=== PATIENT | female | born 1985 | race Two or more races ===

== ENCOUNTER 2018-08-21 00:11 | Emergency (ER) | payer SELFPAY ==
[~2018-08-21] VITALS: Ht 162.6 cm; Wt 122.9 kg
[2018-08-21 00:19] VITALS: BP 125/83
== END 2018-08-21 06:46 | disposition left against medical advice (07) ==
LOC: EDBD 00:11 → ER 00:17
DX: N93.9 Abnormal uterine and vaginal bleeding, unspecified (principal); Z53.21 Procedure and treatment not carried out due to patient leaving prior to being seen by health care provider

== ENCOUNTER 2020-08-08 14:57 | Emergency (ER) | payer MEDICAID, OTHER ==
[~2020-08-08] VITALS: Ht 162.6 cm; Wt 126.1 kg
[2020-08-08 16:48] LABS: Urine Bacteria NONE SEEN /hpf (None Seen); Urine Blood 3+ /uL (Negative); Urine Mucus MODERATE (None Seen); Urine Specific Gravity 1.026 (1.001-1.035); Urine WBC 92 /hpf (0 - 5)
[2020-08-08] MEDS ORDERED: cefTRIAXone 1GM/50ML D5W 50 ML IV ONE (18:30)
[2020-08-08 19:27] LABS: Basophils # (auto) 0.1 10 ^3/uL (0-0.2); Basophils % (auto) 0.6 % (0.0-2.0); Hemoglobin 8.5 g/dL (12.2-16.2); Neutrophils # (auto) 8.8 10 ^3/uL (1.6-8.6); Nucleated Red Blood Cells % 0.1 %
[2020-08-08 19:28] LABS: INR 0.99 (0.9-1.15); Partial Thromboplastin Time 28.1 sec (23.0-31.2)
[2020-08-08 19:29] LABS: Eosinophils # (auto) 0.1 10 ^3/uL (0-0.8); Hematocrit 28.4 % (36.0-46.0); Lymphocytes # (auto) 3.4 10 ^3/uL (0.4-5.4); Lymphocytes % (auto) 25.9 % (10.0-50.0); Mean Corpuscular Hgb Conc. 29.9 g/dL (32.0-36.0); Mean Corpuscular Volume 63.6 fL (80.0-100.0); Monocytes # (auto) 0.6 10 ^3/uL (0-1.3); Monocytes % (auto) 4.9 % (0.0-12.0); Neutrophils % (auto) 67.6 % (37.0-80.0); Platelet Count (auto) 561 10^3/uL (140-450); Red Blood Cells 4.47 10^6/uL (4.0-5.20); Red Cell Distribution Width 19.7 % (11.8-14.3); White Blood Cell 13.1 10^3/uL (4.4-10.8)
[2020-08-08 19:30] LABS: Albumin 3.6 g/dL (3.4-5.0)
[2020-08-08 19:34] LABS: BUN/Creatinine Ratio 16.4; Bilirubin, Total 0.5 mg/dL (0.2-1.0); Total Protein 7.9 g/dL (6.4-8.2)
[2020-08-09 00:44] VITALS: BP 108/47
[2020-08-09 00:59] VITALS: BP 125/69
[2020-08-09 03:00] VITALS: BP 105/56
[2020-08-09 03:01] VITALS: BP 104/48
== END 2020-08-09 03:53 | disposition home or self-care (01) ==
LOC: ER 14:57
DX: D64.9 Anemia, unspecified (principal); N39.0 Urinary tract infection, site not specified
CPT/HCPCS: 36415; 36430; 80053; 81001; 85025; 85610; 85730; 86850; 86870; 86900; 86901; 86902; 86905; 96365; 99285; J0696; J7030; P9016; 86920; 86922

== ENCOUNTER 2021-04-06 02:53 | Inpatient (IN) | payer MEDICAID ==
[~2021-04-06] VITALS: Ht 160 cm; Wt 120.5 kg
[2021-04-06] MEDS ORDERED: MORPHINE SULFATE INJECTION 2 MG/ML SYRG IV PRN (06:30)
[2021-04-06] MEDS ORDERED: NITROGLYCERIN 0.4 MG SL TAB SL PRN (06:30)
[2021-04-06] MEDS ORDERED: TEMAZEPAM 15 MG CAP PO PRN (06:30)
[2021-04-06] MEDS ORDERED: ONDANSETRON HCL 4 MG/2 ML VIAL IV PRN (06:30)
[2021-04-06] MEDS ORDERED: ACETAMINOPHEN 500 MG TAB PO PRN (06:30)
[2021-04-06 07:02] VITALS: BP 101/50
[2021-04-06 07:23] LABS: Basophils # (auto) 0 10 ^3/uL (0-0.2); Eosinophils # (auto) 0 10 ^3/uL (0-0.8); Lymphocytes # (auto) 0.9 10 ^3/uL (0.4-5.4); Mean Corpuscular Hemoglobin 25.4 pg (28.0-32.0); White Blood Cell 4.1 10^3/uL (4.4-10.8)
[2021-04-06 07:24] LABS: Basophils % (auto) 0.6 % (0.0-2.0); Eosinophils % (auto) 0.6 % (0.0-7.0); Hematocrit 36.5 % (36.0-46.0); Hemoglobin 12.3 g/dL (12.2-16.2); Lymphocytes % (auto) 22.8 % (10.0-50.0); Mean Corpuscular Hgb Conc. 33.7 g/dL (32.0-36.0); Mean Corpuscular Volume 75.3 fL (80.0-100.0); Monocytes # (auto) 0.6 10 ^3/uL (0-1.3); Monocytes % (auto) 14.7 % (0.0-12.0); Neutrophils # (auto) 2.5 10 ^3/uL (1.6-8.6); Neutrophils % (auto) 61.3 % (37.0-80.0); Nucleated Red Blood Cells % 0.1 %; Red Blood Cells 4.84 10^6/uL (4.0-5.20); Red Cell Distribution Width 17.7 % (11.8-14.3)
[2021-04-06 07:38] LABS: INR 1.06 (0.9-1.15); Partial Thromboplastin Time 25.6 sec (23.0-31.2)
[2021-04-06 07:45] LABS: Magnesium 2.3 mg/dL (1.6-2.6)
[2021-04-06 07:54] LABS: CRP High Sensitivity 4.43 mg/dL (< 0.3)
[2021-04-06 08:06] LABS: Anion Gap 9 (5-15); Blood Urea Nitrogen 12 mg/dL (7-18); Calcium 8.5 mg/dL (8.5-10.1); Carbon Dioxide 25 mmol/L (21-32); Chloride 108 mmol/L (98-107); Glucose 87 mg/dL (74-106); Magnesium 2.4 mg/dL (1.6-2.6); Potassium 3.2 mmol/L (3.5-5.1); Sodium 142 mmol/L (136-145)
[2021-04-06 08:12] LABS: Alanine Aminotransferase 39 U/L (13-56); Alkaline Phosphatase 53 U/L (45-117); Aspartate Aminotransferase 26 U/L (15-37); BUN/Creatinine Ratio 20.3; Bilirubin, Total 0.6 mg/dL (0.2-1.0); GFR African American 149 mL/min; GFR Non-African American 123 mL/min; Total Protein 7.8 g/dL (6.4-8.2)
[2021-04-06] MEDS: AZITHROMYCIN 500MG/ 250ML 250 ML IV SCH (10:40)
[2021-04-06] MEDS: DexAMETHasone SOD PHOS 10MG/1ML VIAL INJ IV SCH (10:40)
[2021-04-06] MEDS: ZINC SULFATE 220mg CAP or TAB PO SCH (10:41)
[2021-04-06] MEDS: ASCORBIC ACID 1,000 MG TAB PO SCH (10:41)
[2021-04-06] MEDS: CHOLECALCIFEROL (VITD3) 2,000 UNIT CAP/TAB PO SCH (10:41)
[2021-04-06] MEDS: FAMOTIDINE 20 MG TAB PO SCH ×2 (10:41→22:00)
[2021-04-06] MEDS: ENOXAPARIN SOD 40 MG/0.4 ML SYRINGE SC SCH ×2 (10:41→22:00)
[2021-04-06] MEDS ORDERED: REMDESIVIR PER PHARMACY 0 ML IV SCH (11:30)
[2021-04-06] MEDS: IPRATROPIUM BROMIDE HFA AER IN SCH ×3 (11:45→22:11)
[2021-04-06 12:30] VITALS: BP 123/68
[2021-04-06] MEDS: ALBUTEROL SULF HFA 90MCG INH 200DOSE IN PRN ×2 (13:41→18:50)
[2021-04-06] MEDS ORDERED: FUROSEMIDE 40 MG/4 ML VIAL IV ONE (14:00)
[2021-04-06 14:01] LABS: Urine Bacteria NONE SEEN /hpf (None Seen); Urine Blood TRACE /uL (Negative); Urine Hyaline Cast MOD /lpf (0 - 2); Urine Mucus FEW (None Seen); Urine Specific Gravity 1.027 (1.001-1.035); Urine WBC 532 /hpf (0 - 5)
[2021-04-06] MEDS ORDERED: REMDESIVIR 200 MG in NS 210ml LOADING DOSE ADULT IV ONE (15:00)
[2021-04-06] MEDS ORDERED: guaiFENesin-DM 100/10mg/5ml SYR PO PRN (15:45)
[2021-04-06] MEDS ORDERED: diphenhdrAMINE HCL 50 MG/1 ML VL IV PRN (16:00)
[2021-04-06 17:00] VITALS: BP 114/70
[2021-04-06 20:00] VITALS: BP 115/67
[2021-04-06 22:00] VITALS: BP 115/67
[2021-04-07] VITALS (8 sets, daily range): BP systolic 104–119; BP diastolic 59–71
[2021-04-07 07:18] LABS: Basophils # (auto) 0 10 ^3/uL (0-0.2); Basophils % (auto) 0.2 % (0.0-2.0); Eosinophils # (auto) 0 10 ^3/uL (0-0.8); Hematocrit 34.7 % (36.0-46.0); Hemoglobin 11.4 g/dL (12.2-16.2); Lymphocytes # (auto) 0.9 10 ^3/uL (0.4-5.4); Lymphocytes % (auto) 19.7 % (10.0-50.0); Mean Corpuscular Hemoglobin 24.9 pg (28.0-32.0); Mean Corpuscular Hgb Conc. 32.8 g/dL (32.0-36.0); Mean Corpuscular Volume 75.9 fL (80.0-100.0); Monocytes # (auto) 0.5 10 ^3/uL (0-1.3); Monocytes % (auto) 10.8 % (0.0-12.0); Neutrophils # (auto) 3.3 10 ^3/uL (1.6-8.6); Neutrophils % (auto) 69.3 % (37.0-80.0); Nucleated Red Blood Cells % 0.2 %; Red Blood Cells 4.57 10^6/uL (4.0-5.20); Red Cell Distribution Width 17.7 % (11.8-14.3); White Blood Cell 4.8 10^3/uL (4.4-10.8)
[2021-04-07 07:34] LABS: Potassium 3.3 mmol/L (3.5-5.1)
[2021-04-07 07:40] LABS: Bilirubin, Total 0.5 mg/dL (0.2-1.0); Total Protein 7.6 g/dL (6.4-8.2)
[2021-04-07] MEDS: ALBUTEROL SULF HFA 90MCG INH 200DOSE IN PRN ×2 (07:50→22:59)
[2021-04-07] MEDS: IPRATROPIUM BROMIDE HFA AER IN SCH ×4 (07:51→22:59)
[2021-04-07] MEDS: ENOXAPARIN SOD 40 MG/0.4 ML SYRINGE SC SCH ×2 (09:37→21:13)
[2021-04-07] MEDS: AZITHROMYCIN 500MG/ 250ML 250 ML IV SCH (09:37)
[2021-04-07] MEDS: DexAMETHasone SOD PHOS 10MG/1ML VIAL INJ IV SCH (09:37)
[2021-04-07] MEDS: CHOLECALCIFEROL (VITD3) 2,000 UNIT CAP/TAB PO SCH (09:38)
[2021-04-07] MEDS: FAMOTIDINE 20 MG TAB PO SCH ×2 (09:38→21:14)
[2021-04-07] MEDS: ASCORBIC ACID 1,000 MG TAB PO SCH (09:38)
[2021-04-07] MEDS: ZINC SULFATE 220mg CAP or TAB PO SCH (09:38)
[2021-04-07] MEDS: FUROSEMIDE 40 MG/4 ML VIAL IV SCH (09:39)
[2021-04-07] MEDS: REMDESIVIR 100mg 100 MG in SODIUM CHL 0.9% 230 ML IV SCH (15:01)
[2021-04-08 05:28] VITALS: BP 111/60
[2021-04-08] MEDS: ALBUTEROL SULF HFA 90MCG INH 200DOSE IN PRN ×2 (07:19→22:33)
[2021-04-08] MEDS: IPRATROPIUM BROMIDE HFA AER IN SCH ×4 (07:19→22:00)
[2021-04-08 07:43] LABS: Calcium 8.6 mg/dL (8.5-10.1); Potassium 3.2 mmol/L (3.5-5.1)
[2021-04-08 07:46] LABS: BUN/Creatinine Ratio 23.1; Bilirubin, Total 0.5 mg/dL (0.2-1.0); Total Protein 7.5 g/dL (6.4-8.2)
[2021-04-08 08:50] VITALS: BP 108/61
[2021-04-08] MEDS: ASCORBIC ACID 1,000 MG TAB PO SCH (09:48)
[2021-04-08] MEDS: AZITHROMYCIN 500MG/ 250ML 250 ML IV SCH (09:48)
[2021-04-08] MEDS: FUROSEMIDE 40 MG/4 ML VIAL IV SCH (09:48)
[2021-04-08] MEDS: ZINC SULFATE 220mg CAP or TAB PO SCH (09:48)
[2021-04-08] MEDS: FAMOTIDINE 20 MG TAB PO SCH ×2 (09:48→21:30)
[2021-04-08] MEDS: DexAMETHasone SOD PHOS 10MG/1ML VIAL INJ IV SCH (09:48)
[2021-04-08] MEDS: CHOLECALCIFEROL (VITD3) 2,000 UNIT CAP/TAB PO SCH (09:48)
[2021-04-08] MEDS: ENOXAPARIN SOD 40 MG/0.4 ML SYRINGE SC SCH ×2 (09:49→21:30)
[2021-04-08 12:53] VITALS: BP 109/66
[2021-04-08] MEDS ORDERED: POTASSIUM CHL 20 Meq TABLET PO ONE (13:00)
[2021-04-08] MEDS ORDERED: BUDESONIDE (INHALATION) 0.5 MG/2 ML NEB NEB ONE (13:00)
[2021-04-08] MEDS: REMDESIVIR 100mg 100 MG in SODIUM CHL 0.9% 230 ML IV SCH (15:31)
[2021-04-08 17:00] VITALS: BP 110/67
[2021-04-08 20:00] VITALS: BP 114/68
[2021-04-08 22:00] VITALS: BP 114/77
[2021-04-08] MEDS: BUDESONIDE (INHALATION) 0.5 MG/2 ML NEB NEB SCH (22:32)
[2021-04-09 05:00] VITALS: BP 106/59
[2021-04-09 07:08] LABS: BUN/Creatinine Ratio 24.1; Calcium 8.2 mg/dL (8.5-10.1); Potassium 3.2 mmol/L (3.5-5.1)
[2021-04-09 07:10] LABS: Bilirubin, Total 0.6 mg/dL (0.2-1.0); Total Protein 7.4 g/dL (6.4-8.2)
[2021-04-09] MEDS: IPRATROPIUM BROMIDE HFA AER IN SCH ×4 (07:15→22:41)
[2021-04-09] MEDS: ALBUTEROL SULF HFA 90MCG INH 200DOSE IN PRN ×3 (07:15→18:11)
[2021-04-09] MEDS: BUDESONIDE (INHALATION) 0.5 MG/2 ML NEB NEB SCH ×2 (07:15→18:11)
[2021-04-09 08:55] VITALS: BP 108/54
[2021-04-09] MEDS: FUROSEMIDE 40 MG/4 ML VIAL IV SCH (10:03)
[2021-04-09] MEDS: DexAMETHasone SOD PHOS 10MG/1ML VIAL INJ IV SCH (10:03)
[2021-04-09] MEDS: ZINC SULFATE 220mg CAP or TAB PO SCH (10:04)
[2021-04-09] MEDS: AZITHROMYCIN 500MG/ 250ML 250 ML IV SCH (10:04)
[2021-04-09] MEDS: ASCORBIC ACID 1,000 MG TAB PO SCH (10:06)
[2021-04-09] MEDS: POTASSIUM CHL 20 Meq TABLET PO SCH (10:06)
[2021-04-09] MEDS: FAMOTIDINE 20 MG TAB PO SCH ×2 (10:06→21:39)
[2021-04-09] MEDS: CHOLECALCIFEROL (VITD3) 2,000 UNIT CAP/TAB PO SCH (10:06)
[2021-04-09] MEDS: ENOXAPARIN SOD 40 MG/0.4 ML SYRINGE SC SCH ×2 (10:07→21:39)
[2021-04-09 12:48] VITALS: BP 114/83
[2021-04-09] MEDS: REMDESIVIR 100mg 100 MG in SODIUM CHL 0.9% 230 ML IV SCH (14:10)
[2021-04-09 15:26] VITALS: BP 114/83
[2021-04-09 17:00] VITALS: BP 115/59
[2021-04-09 22:00] VITALS: BP 115/56
[2021-04-10 05:00] VITALS: BP 104/78
[2021-04-10 07:09] LABS: Basophils # (auto) 0 10 ^3/uL (0-0.2); Eosinophils # (auto) 0 10 ^3/uL (0-0.8); Eosinophils % (auto) 0.1 % (0.0-7.0); Lymphocytes # (auto) 1.6 10 ^3/uL (0.4-5.4); Neutrophils % (auto) 68.6 % (37.0-80.0)
[2021-04-10 07:12] LABS: Basophils % (auto) 0.1 % (0.0-2.0); Hematocrit 35.4 % (36.0-46.0); Hemoglobin 12.1 g/dL (12.2-16.2); Lymphocytes % (auto) 21.4 % (10.0-50.0); Mean Corpuscular Hemoglobin 25.7 pg (28.0-32.0); Mean Corpuscular Hgb Conc. 34.1 g/dL (32.0-36.0); Mean Corpuscular Volume 75.4 fL (80.0-100.0); Monocytes # (auto) 0.8 10 ^3/uL (0-1.3); Monocytes % (auto) 9.8 % (0.0-12.0); Neutrophils # (auto) 5.3 10 ^3/uL (1.6-8.6); Nucleated Red Blood Cells % 0.2 %; Red Cell Distribution Width 17.4 % (11.8-14.3); White Blood Cell 7.7 10^3/uL (4.4-10.8)
[2021-04-10 07:27] LABS: Potassium 3.4 mmol/L (3.5-5.1)
[2021-04-10 07:41] LABS: Albumin 3.2 g/dL (3.4-5.0); BUN/Creatinine Ratio 20.7; Bilirubin, Total 0.6 mg/dL (0.2-1.0); CRP High Sensitivity 0.66 mg/dL (< 0.3); Calcium 8.7 mg/dL (8.5-10.1); Total Protein 7.5 g/dL (6.4-8.2)
[2021-04-10] MEDS: IPRATROPIUM BROMIDE HFA AER IN SCH ×4 (07:58→22:11)
[2021-04-10] MEDS: ALBUTEROL SULF HFA 90MCG INH 200DOSE IN PRN ×3 (07:58→18:36)
[2021-04-10] MEDS: BUDESONIDE (INHALATION) 0.5 MG/2 ML NEB NEB SCH ×2 (08:09→18:34)
[2021-04-10 09:00] VITALS: BP 113/54
[2021-04-10] MEDS: POTASSIUM CHL 20 Meq TABLET PO SCH (11:17)
[2021-04-10] MEDS: ASCORBIC ACID 1,000 MG TAB PO SCH (11:17)
[2021-04-10] MEDS: CHOLECALCIFEROL (VITD3) 2,000 UNIT CAP/TAB PO SCH (11:17)
[2021-04-10] MEDS: FAMOTIDINE 20 MG TAB PO SCH ×2 (11:17→22:03)
[2021-04-10] MEDS: ZINC SULFATE 220mg CAP or TAB PO SCH (11:17)
[2021-04-10] MEDS: ENOXAPARIN SOD 40 MG/0.4 ML SYRINGE SC SCH ×2 (11:18→22:03)
[2021-04-10] MEDS: DexAMETHasone SOD PHOS 10MG/1ML VIAL INJ IV SCH (11:18)
[2021-04-10] MEDS: FUROSEMIDE 40 MG/4 ML VIAL IV SCH (11:18)
[2021-04-10 13:00] VITALS: BP 111/62
[2021-04-10] MEDS: REMDESIVIR 100mg 100 MG in SODIUM CHL 0.9% 230 ML IV SCH (15:58)
[2021-04-10 17:00] VITALS: BP 107/63
[2021-04-10 22:00] VITALS: BP 105/62
[2021-04-11 05:00] VITALS: BP 112/63
[2021-04-11] MEDS: ALBUTEROL SULF HFA 90MCG INH 200DOSE IN PRN ×2 (06:53→12:11)
[2021-04-11] MEDS: BUDESONIDE (INHALATION) 0.5 MG/2 ML NEB NEB SCH (06:53)
[2021-04-11] MEDS: IPRATROPIUM BROMIDE HFA AER IN SCH ×2 (06:53→12:12)
[2021-04-11 09:00] VITALS: BP 102/60
[2021-04-11] MEDS: ENOXAPARIN SOD 40 MG/0.4 ML SYRINGE SC SCH (09:05)
[2021-04-11] MEDS: CHOLECALCIFEROL (VITD3) 2,000 UNIT CAP/TAB PO SCH (09:05)
[2021-04-11] MEDS: ASCORBIC ACID 1,000 MG TAB PO SCH (09:06)
[2021-04-11] MEDS: ZINC SULFATE 220mg CAP or TAB PO SCH (09:06)
[2021-04-11] MEDS: POTASSIUM CHL 20 Meq TABLET PO SCH (09:06)
[2021-04-11] MEDS: FAMOTIDINE 20 MG TAB PO SCH (09:06)
[2021-04-11] MEDS: DexAMETHasone SOD PHOS 10MG/1ML VIAL INJ IV SCH (09:07)
[2021-04-11] MEDS: FUROSEMIDE 40 MG/4 ML VIAL IV SCH (09:07)
[2021-04-11] MEDS ORDERED: CHOL1CAP47 PO (12:06)
[2021-04-11] MEDS ORDERED: ZINC220T6 PO (12:06)
[2021-04-11] MEDS ORDERED: DEX4T PO (12:06)
[2021-04-11] MEDS ORDERED: ASCO10003 PO (12:06)
[2021-04-11] MEDS ORDERED: ALBUAER3 IN (12:06)
[2021-04-11 12:14] VITALS: BP 114/61
== END 2021-04-11 13:23 | disposition home or self-care (01) | DRG 137 ==
LOC: EDBD 02:53 → ER 02:53 → TELE 06:22 → TELE-EAST 11:17 → EAST 04-09 16:33
PROVIDERS: ADMIT Nurse Practitioner; ATTEND Internal Medicine
PROC: XW033E5 Introduction of Remdesivir Anti-infective into Peripheral Vein, Percutaneous Approach, New Technology Group 5 (ICD-10-PCS; 2021-04-06)
PROC: XW13325 Transfusion of Convalescent Plasma (Nonautologous) into Peripheral Vein, Percutaneous Approach, New Technology Group 5 (ICD-10-PCS; principal; 2021-04-07)
DX: U07.1 COVID-19 (principal); J96.01 Acute respiratory failure with hypoxia; J12.82 Pneumonia due to coronavirus disease 2019; E66.01 Morbid (severe) obesity due to excess calories; D89.839 Cytokine release syndrome, grade unspecified; Z68.42 Body mass index [BMI] 45.0-49.9, adult; E87.6 Hypokalemia; Z90.49 Acquired absence of other specified parts of digestive tract; Z83.3 Family history of diabetes mellitus; Z82.49 Family history of ischemic heart disease and other diseases of the circulatory system; Z79.899 Other long term (current) drug therapy
CPT/HCPCS: 36415; 36430; 36600; 71045; 80053; 81001; 82306; 82728; 82805; 83036; 83605; 83615; 83735; 83880; 84443; 84484; 84702; 85025; 85379; 85610; 85730; 86141; 86850; 86870; 86900; 86901; 87040; 87086; 87426; 93005; 94640; 96365; 96375; G0378; J1100